=== PATIENT | male | born 1960 | race African-American/Black ===

== ENCOUNTER 2018-11-07 14:52 | Inpatient (IN) | payer MEDICARE, MEDICAID ==
[~2018-11-07] VITALS: Ht 182.9 cm; Wt 73.5 kg
[2018-11-07] MEDS ORDERED: OLANZAPINE 10 MG VIAL IM ONE ×2 (15:15→15:32)
[2018-11-07 15:28] LABS: BASOPHILS # (AUTO) 0.1 K/uL (0.0-8.0); BASOPHILS % (AUTO) 1.1 % (0.0-2.0); EOSINOPHILS # (AUTO) 0.1 K/uL (0.0-0.7); EOSINOPHILS % (AUTO) 1.6 % (0.0-7.0); HEMATOCRIT 37.6 % (36.7-47.1); HEMOGLOBIN 12.2 g/dL (12.5-16.3); LYMPHOCYTES # (AUTO) 1.1 K/uL (20.0-40.0); MEAN CORPUSCULAR HEMOGLOBIN 28.9 uug (23.8-33.4); MEAN CORPUSCULAR HGB CONC 32 g/dL (32.5-36.3); MEAN CORPUSCULAR VOLUME 89.4 fL (73.0-96.2); MONOCYTES # (AUTO) 0.5 K/uL (2.0-10.0); MONOCYTES % (AUTO) 8.2 % (0.0-11.0); NEUTROPHILS % (AUTO) 69.1 % (38.5-71.5); PLATELET COUNT (AUTO) 182 K/uL (152-348); RED BLOOD CELL COUNT(AUTO) 4.21 MIL/uL (4.06-5.63); WHITE BLOOD COUNT (AUTO) 5.7 K/uL (3.6-10.2)
[2018-11-07 15:39] LABS: CARBON DIOXIDE 27 mmol/L (21-32); CHLORIDE 106 mmol/L (98-107); CREATININE 1.6 mg/dL (0.6-1.3); GLUCOSE 132 mg/dL (74-106); POTASSIUM 4.5 mmol/L (3.5-5.1); UREA NITROGEN, BLOOD 27 mg/dL (7-18)
[2018-11-07 15:43] LABS: ALANINE AMINOTRANSFERASE 88 U/L (16-63); ALKALINE PHOSPHATASE 73 U/L (50-136); ASPARTATE AMINOTRANSFERASE 46 U/L (15-37); BILIRUBIN,DIRECT 0.1 mg/dL (0.0-0.2); BILIRUBIN,TOTAL 0.4 mg/dL (0.2-1.0); TOTAL PROTEIN, SERUM 6.2 g/dL (6.4-8.2)
[2018-11-07 15:45] LABS: ACETAMINOPHEN < 2.0 ug/mL (10-30)
[2018-11-07 15:52] LABS: ETHANOL < 3 MG/DL (0-0)
[2018-11-07] MEDS ORDERED: CARV25TA2 PO (16:02)
[2018-11-07] MEDS ORDERED: DIPH25CA83 PO (16:02)
[2018-11-07] MEDS ORDERED: LISI10TA5 PO (16:02)
[2018-11-07] MEDS ORDERED: FAMO20TA8 PO (16:02)
[2018-11-07] MEDS ORDERED: HEPA500013 IJ (16:02)
[2018-11-07] MEDS ORDERED: LORA1TAB PO (16:02)
[2018-11-07] MEDS ORDERED: BENZ1TAB7 PO (16:02)
[2018-11-07] MEDS ORDERED: DEXT38GE12 PO (16:02)
[2018-11-07] MEDS ORDERED: POLY17PO4 PO (16:02)
[2018-11-07] MEDS ORDERED: ACET325T53 PO (16:02)
[2018-11-07] MEDS ORDERED: HALO5TAB12 PO ×2 (16:02)
[2018-11-07] MEDS ORDERED: FURO20TA4 PO (16:02)
[2018-11-07] MEDS ORDERED: GLIP2.5T3 PO (16:02)
--- NOTE | 2018-11-07 16:04 | NUR ---
PT MEDICALLY CLEARED, TRANSFER TO [facility] PENDING ON BED AVAILABILITY, METALLURGIST HELPER AWARE.
--- NOTE | 2018-11-07 17:00 | NUR ---
HOSPITAL DINNER TRAY PROVIDED
--- NOTE | 2018-11-07 19:30 | NUR ---
Received report from Reba EDWARDS, assumed care of pt., pt. resting in bed, security at bedside for 1:1 for pt. safety, bed in low position, wheels locked, all pt. needs met,
--- NOTE | 2018-11-07 19:45 | NUR ---
Jorge hernandez picked up from pharmacy for pt.,
--- NOTE | 2018-11-07 20:11 | NUR ---
Pt. up to use restroom, walks w/ steady gait, blanket given for comfort,
[2018-11-07] MEDS: NICOTINE 14 MG/24HR PATCH TD SCH (20:14)
[2018-11-07] MEDS ORDERED: DEXTROSE 50% 50 ML DISP.SYRIN IV PRN (20:30)
[2018-11-07] MEDS ORDERED: FAMOTIDINE 20 MG TABLET PO PRN (20:30)
[2018-11-07] MEDS ORDERED: ONDANSETRON ODT 4 MG TAB.RAPDIS SL ONE (20:30)
--- NOTE | 2018-11-07 20:30 | NUR ---
Pt. witnessed sticking fingers down throat to forcibly vomit into trash can,
[2018-11-07] MEDS ORDERED: ONDANSETRON ODT 4 MG TAB.RAPDIS ONE (20:35)
--- NOTE | 2018-11-07 21:25 | NUR ---
[place] [facility]
[2018-11-07] MEDS: BLOOD SUGAR DIAGNOSTIC 1 EACH STRIP VI SCH (21:50)
--- NOTE | 2018-11-07 21:51 | NUR ---
Pt. taken off unit via wheelchair by RN and security, all belongings w/ pt., chart copied and taken w/ pt., NAD
[2018-11-07] MEDS ORDERED: MAGNESIUM HYDROXIDE 30 ML LIQUID UDC PO PRN (22:00)
[2018-11-07] MEDS ORDERED: MAG HYDROX/AL HYDROX/SIMETH 30 ML LIQUID UDC PO PRN (22:00)
[2018-11-07 22:35] VITALS: BP 119/87
--- NOTE | 2018-11-07 23:00 | NUR ---
received to care, from the emergency room, on a 14 day hold, a transfer from [facility]. according to the chart, he was previously homeless. he apparently was acting bizarre at a local business, yelling, with his pants down. the police were called, and he was taken to [facility], initially. upon arrival here, he was pleasant and cooperative. denied SI/HI, and agreed to contract for safety, while in the hospital. he appeared disheveled, with odorous clothing, but agreed to take a shower, and went to bed. as of 2300, he appears to be awake, but calm. no distress noted.
[2018-11-08] MEDS: CLONAZEPAM 0.5 MG TABLET PO PRN ×2 (00:37→20:24)
--- NOTE | 2018-11-08 00:37 | NUR ---
is now awake and restless, pacing the hallway intermittently, wandering into peers rooms. was redirected back to his bed, but remains restless, thrashing about and talking to self; PRN kate was given. will continue to monitor closely.
--- NOTE | 2018-11-08 01:33 | NUR ---
appears to be asleep. no distress noted.
[2018-11-08] MEDS: BLOOD SUGAR DIAGNOSTIC 1 EACH STRIP VI SCH ×4 (06:39→20:25)
[2018-11-08 07:30] VITALS: BP 141/104
--- NOTE | 2018-11-08 07:30 | NUR ---
RECIEVED PT LYING IN BED AND SO SOUND ASLEEP. AROUSABLE TO CALL. NO APPARENT DISTRESS NOTED.
[2018-11-08 07:39] LABS: BASOPHILS # (AUTO) 0.1 K/uL (0.0-8.0); BASOPHILS % (AUTO) 1.1 % (0.0-2.0); EOSINOPHILS # (AUTO) 0.1 K/uL (0.0-0.7); EOSINOPHILS % (AUTO) 1.7 % (0.0-7.0); HEMATOCRIT 39.1 % (36.7-47.1); HEMOGLOBIN 12.6 g/dL (12.5-16.3); LYMPHOCYTES # (AUTO) 1.5 K/uL (20.0-40.0); LYMPHOCYTES % (AUTO) 24.8 % (20.5-51.5); MEAN CORPUSCULAR HEMOGLOBIN 28.7 uug (23.8-33.4); MEAN CORPUSCULAR HGB CONC 32 g/dL (32.5-36.3); MEAN CORPUSCULAR VOLUME 89.3 fL (73.0-96.2); MONOCYTES # (AUTO) 0.5 K/uL (2.0-10.0); MONOCYTES % (AUTO) 8.8 % (0.0-11.0); NEUTROPHILS # (AUTO) 3.7 K/uL (1.8-8.9); NEUTROPHILS % (AUTO) 63.6 % (38.5-71.5); PLATELET COUNT (AUTO) 200 K/uL (152-348); RED BLOOD CELL COUNT(AUTO) 4.38 MIL/uL (4.06-5.63); WHITE BLOOD COUNT (AUTO) 5.9 K/uL (3.6-10.2)
[2018-11-08 07:49] LABS: CREATININE 1.8 mg/dL (0.6-1.3); MAGNESIUM 1.8 mg/dL (1.8-2.4); PHOSPHOROUS 3.3 mg/dL (2.5-4.9); POTASSIUM 4.1 mmol/L (3.5-5.1)
[2018-11-08 08:10] LABS: THYROID STIMULATING HORMONE 2.374 mIU/mL (0.358-3.740)
[2018-11-08] MEDS: NICOTINE 14 MG/24HR PATCH TD SCH (08:50)
[2018-11-08] MEDS: BENZTROPINE MESYLATE 1 MG TABLET PO SCH ×2 (08:50→17:14)
[2018-11-08] MEDS: CARVEDILOL 25 MG TABLET PO SCH ×2 (08:51→17:21)
--- NOTE | 2018-11-08 09:30 | NUR ---
PT REFUSED TO EAT BREAKFAST AT THIS TIME BUT PT TOOK HIS MEDICATIONS.
[2018-11-08 16:00] VITALS: BP 139/77
--- NOTE | 2018-11-08 17:00 | NUR ---
PT HAS BEEN SLEEPING MOST OF THE DAY. NO HALLUCINATIONS NOTED, NO EVENTFUL EPISODE TODAY. VSS STABLE.
[2018-11-08] MEDS: HALOPERIDOL 5 MG TABLET PO SCH (17:14)
[2018-11-08] MEDS: INSULIN REGULAR, HUMAN 300 UNIT/3 ML VIAL SQ PRN (17:18)
[2018-11-08 20:21] VITALS: BP 123/76
[2018-11-08] MEDS: ACETAMINOPHEN 325 MG TABLET PO PRN (20:24)
--- NOTE | 2018-11-08 22:00 | NUR ---
received to care, lying in bed, pleasant upon approach. compliant with medications fluids, snacks, and staff requests. PRN gadielonopin was given at 2024. as of 2199, he appears to be asleep. no distress noted. will continue to monitor closely.
[2018-11-09] MEDS: BLOOD SUGAR DIAGNOSTIC 1 EACH STRIP VI SCH ×4 (07:01→20:48)
[2018-11-09 07:21] LABS: BASOPHILS # (AUTO) 0.1 K/uL (0.0-8.0); BASOPHILS % (AUTO) 0.8 % (0.0-2.0); EOSINOPHILS # (AUTO) 0.1 K/uL (0.0-0.7); EOSINOPHILS % (AUTO) 1.6 % (0.0-7.0); HEMATOCRIT 37.8 % (36.7-47.1); LYMPHOCYTES # (AUTO) 1.2 K/uL (20.0-40.0); LYMPHOCYTES % (AUTO) 18.6 % (20.5-51.5); MEAN CORPUSCULAR HEMOGLOBIN 28.4 uug (23.8-33.4); MEAN CORPUSCULAR HGB CONC 32 g/dL (32.5-36.3); MEAN CORPUSCULAR VOLUME 89.4 fL (73.0-96.2); MONOCYTES # (AUTO) 0.6 K/uL (2.0-10.0); MONOCYTES % (AUTO) 8.9 % (0.0-11.0); NEUTROPHILS # (AUTO) 4.6 K/uL (1.8-8.9); NEUTROPHILS % (AUTO) 70.1 % (38.5-71.5); PLATELET COUNT (AUTO) 182 K/uL (152-348); RED BLOOD CELL COUNT(AUTO) 4.23 MIL/uL (4.06-5.63); WHITE BLOOD COUNT (AUTO) 6.6 K/uL (3.6-10.2)
[2018-11-09 07:30] VITALS: BP 113/80
[2018-11-09 07:36] LABS: CREATININE 1.7 mg/dL (0.6-1.3); MAGNESIUM 1.8 mg/dL (1.8-2.4); PHOSPHOROUS 3.7 mg/dL (2.5-4.9); POTASSIUM 3.8 mmol/L (3.5-5.1)
[2018-11-09] MEDS: BENZTROPINE MESYLATE 1 MG TABLET PO SCH ×2 (09:02→16:54)
[2018-11-09] MEDS: HALOPERIDOL 5 MG TABLET PO SCH ×3 (09:02→16:54)
[2018-11-09] MEDS: NICOTINE 14 MG/24HR PATCH TD SCH (09:03)
[2018-11-09] MEDS: CARVEDILOL 25 MG TABLET PO SCH ×2 (09:03→17:36)
[2018-11-09 11:45] LABS: BILIRUBIN,DIRECT 0.1 mg/dL (0.0-0.2); BILIRUBIN,TOTAL 0.3 mg/dL (0.2-1.0); TOTAL PROTEIN, SERUM 6.2 g/dL (6.4-8.2)
[2018-11-09] MEDS: INSULIN REGULAR, HUMAN 300 UNIT/3 ML VIAL SQ PRN ×3 (12:15→21:45)
--- NOTE | 2018-11-09 12:57 | NUR ---
Gps/Chemistry Technician-Patient anxious, figity, responding to internal stimuli, kept anking for food,crackers, and drinks. Reminded patient of his diabetes. Adequate meals intake, adequate fluids. Compliant with routine meds. Goes to activity room watched TV.
[2018-11-09 16:00] VITALS: BP 120/76
--- NOTE | 2018-11-09 16:57 | NUR ---
Preliminary Discharge Plan/Discharge needs: Pt is currently homeless. SW was unable to ascertain a discharge plan with pt due to pts cognitive impairment and labile mood. core worker will continue to work on a safe and proper discharge plan for pt with pt and MD.
[2018-11-09 19:49] VITALS: BP 134/67
--- NOTE | 2018-11-09 20:00 | NUR ---
Received patient in bed, sleeping. Patient can be aroused to take medications and have blood sugar checked. Patient is oriented x2. All safety and fall precaution measures are in place. Personal items are within reach at all times. VS are wnl and patient is stable. Will continue to monitor.
[2018-11-09] MEDS: CLONAZEPAM 0.5 MG TABLET PO PRN (21:42)
--- NOTE | 2018-11-09 22:40 | NUR ---
Patient states he is unable to sleep. Nurse asked if he would like something to help him sleep. Patient stated yes. Nurse provided patient prescribed sleep medication, as ordered.
[2018-11-09] MEDS: TEMAZEPAM 7.5 MG CAPSULE PO PRN (22:45)
--- NOTE | 2018-11-09 22:54 | NUR ---
Patient is awake and responding to internal stimuli.
--- NOTE | 2018-11-10 | NUR ---
appers to be asleep. no distress noted.
[2018-11-10] MEDS: CLONAZEPAM 0.5 MG TABLET PO PRN ×2 (05:02→14:13)
--- NOTE | 2018-11-10 05:03 | NUR ---
PRN klonopin given for increased agitation, yelling and talking to self.
[2018-11-10] MEDS: BLOOD SUGAR DIAGNOSTIC 1 EACH STRIP VI SCH ×4 (07:00→21:15)
[2018-11-10 08:01] VITALS: BP 134/99
[2018-11-10] MEDS: BENZTROPINE MESYLATE 1 MG TABLET PO SCH ×2 (08:17→16:43)
[2018-11-10] MEDS: CARVEDILOL 25 MG TABLET PO SCH ×2 (08:17→16:43)
[2018-11-10] MEDS: HALOPERIDOL 5 MG TABLET PO SCH ×3 (08:17→16:43)
[2018-11-10] MEDS: NICOTINE 14 MG/24HR PATCH TD SCH (08:21)
[2018-11-10] MEDS: INSULIN REGULAR, HUMAN 300 UNIT/3 ML VIAL SQ PRN ×3 (11:37→21:19)
--- NOTE | 2018-11-10 16:12 | NUR ---
GROUP NOTE: SW prompted pt to attend group discussing the topic of social supports, but pt was sleeping and not easily aroused.
[2018-11-10 16:24] VITALS: BP 130/88
[2018-11-10 19:47] VITALS: BP 139/81
--- NOTE | 2018-11-10 22:00 | NUR ---
Pt received to care in bed, resting comfortably. Pt compliant with ordered POC blood glucose test, with a result of 265 and insulin coverage of 3 units. Requested snacks of ihsan crackers and milk provided. Pt easily redirectable and cooperative with aspects of care to this point. Will continue to monitor. Addendum: 11/11/18 at 0114 by LONI BLAS RN Correction: pt's POC blood glucose was 165 and 3 units of insulin were provided for coverage.
[2018-11-11] MEDS: TEMAZEPAM 7.5 MG CAPSULE PO PRN (00:18)
--- NOTE | 2018-11-11 00:18 | NUR ---
Pt requested medication to help him sleep. Prescribed sleeping medication provided as requested, per prescribed order.
[2018-11-11] MEDS: CLONAZEPAM 0.5 MG TABLET PO PRN ×4 (03:16→22:43)
--- NOTE | 2018-11-11 03:17 | NUR ---
pt is in hallway pacing and anxious; provided pt with prescribed Klonopin, as ordered.
--- NOTE | 2018-11-11 04:17 | NUR ---
pt now sleeping in bed. Klonopin effective.
[2018-11-11] MEDS: BLOOD SUGAR DIAGNOSTIC 1 EACH STRIP VI SCH ×5 (06:06→20:38)
[2018-11-11 06:18] LABS: BASOPHILS % (AUTO) 0.2 % (0.0-2.0); EOSINOPHILS % (AUTO) 1.2 % (0.0-7.0); HEMATOCRIT 36.4 % (36.7-47.1); HEMOGLOBIN 11.7 g/dL (12.5-16.3); LYMPHOCYTES % (AUTO) 24.6 % (20.5-51.5); MEAN CORPUSCULAR HEMOGLOBIN 28.6 uug (23.8-33.4); MEAN CORPUSCULAR HGB CONC 32 g/dL (32.5-36.3); MEAN CORPUSCULAR VOLUME 89.1 fL (73.0-96.2); MONOCYTES % (AUTO) 10.1 % (0.0-11.0); NEUTROPHILS % (AUTO) 63.9 % (38.5-71.5); PLATELET COUNT (AUTO) 195 K/uL (152-348); RED BLOOD CELL COUNT(AUTO) 4.08 MIL/uL (4.06-5.63); WHITE BLOOD COUNT (AUTO) 5.5 K/uL (3.6-10.2)
[2018-11-11 06:19] LABS: EOSINOPHILS # (AUTO) 0.1 K/uL (0.0-0.7); LYMPHOCYTES # (AUTO) 1.4 K/uL (20.0-40.0); MONOCYTES # (AUTO) 0.6 K/uL (2.0-10.0); NEUTROPHILS # (AUTO) 3.5 K/uL (1.8-8.9)
[2018-11-11 06:35] LABS: CREATININE 1.7 mg/dL (0.6-1.3); MAGNESIUM 1.7 mg/dL (1.8-2.4); PHOSPHOROUS 3.7 mg/dL (2.5-4.9); POTASSIUM 4.2 mmol/L (3.5-5.1)
--- NOTE | 2018-11-11 07:20 | NUR ---
pt slept intermittently through night, pacing halls at times, and requesting 'snacks.' Pt not happy when refused food after midnight but was redirectable. pt was compliant with medications and poc glucose testing.
[2018-11-11 08:31] VITALS: BP 142/90
[2018-11-11] MEDS: NICOTINE 14 MG/24HR PATCH TD SCH (08:38)
[2018-11-11] MEDS: HALOPERIDOL 5 MG TABLET PO SCH ×3 (08:39→16:21)
[2018-11-11] MEDS: CARVEDILOL 25 MG TABLET PO SCH ×2 (08:39→17:37)
[2018-11-11] MEDS: BENZTROPINE MESYLATE 1 MG TABLET PO SCH ×2 (08:39→16:22)
[2018-11-11] MEDS: INSULIN REGULAR, HUMAN 300 UNIT/3 ML VIAL SQ PRN ×2 (08:40→20:41)
[2018-11-11] MEDS ORDERED: MAGNESIUM OXIDE 400 MG TABLET PO ONE (09:00)
[2018-11-11] MEDS: diphenhydrAMINE 25 MG CAP PO PRN ×2 (11:34→22:43)
[2018-11-11 16:13] VITALS: BP 165/87
[2018-11-11 19:39] VITALS: BP 125/59
[2018-11-12] MEDS: CLONAZEPAM 0.5 MG TABLET PO PRN ×2 (05:31→11:33)
[2018-11-12] MEDS: BLOOD SUGAR DIAGNOSTIC 1 EACH STRIP VI SCH ×4 (06:09→20:37)
[2018-11-12 07:30] VITALS: BP 126/70
[2018-11-12] MEDS: NICOTINE 14 MG/24HR PATCH TD SCH (08:21)
[2018-11-12] MEDS: HALOPERIDOL 5 MG TABLET PO SCH ×3 (08:21→16:39)
[2018-11-12] MEDS: CARVEDILOL 25 MG TABLET PO SCH ×2 (08:22→17:23)
[2018-11-12] MEDS: ACETAMINOPHEN 325 MG TABLET PO PRN ×2 (08:22→16:39)
[2018-11-12] MEDS: diphenhydrAMINE 25 MG CAP PO PRN ×2 (08:22→21:13)
[2018-11-12] MEDS: BENZTROPINE MESYLATE 1 MG TABLET PO SCH ×2 (08:23→16:39)
[2018-11-12] MEDS: INSULIN REGULAR, HUMAN 300 UNIT/3 ML VIAL SQ PRN ×3 (08:25→16:54)
--- NOTE | 2018-11-12 14:26 | NUR ---
GPS: Nursing Notes: Thought Disorder: Patient is awake and responding to his name, disorganized, anxious and labile affect, verbal abusive toward staff this am, constantly asking for food, but self inducing vomiting, covering psychiatrist informed of vomiting episode, patient gets easily irritable when redirected, disoriented, impaired judgment, using the N word toward staff, unkempt appearance, patient stated, "I will not do it again.." when psychiatrist talked to him, episodes of pacing on the hallway, getting into other patient's room and grabbing food, redirected and reoriented during shift, but becomes loud and angry at times, unable to formulate a viable plan for self care, resistant with nursing care, not compliant with his diabetic diet, continue with treatment plan.
[2018-11-12 16:00] VITALS: BP 123/84
[2018-11-12 20:05] VITALS: BP 132/86
[2018-11-12] MEDS: TEMAZEPAM 7.5 MG CAPSULE PO PRN (21:13)
[2018-11-13] MEDS: CLONAZEPAM 0.5 MG TABLET PO PRN ×3 (01:22→22:08)
[2018-11-13] MEDS: BLOOD SUGAR DIAGNOSTIC 1 EACH STRIP VI SCH ×4 (06:21→20:46)
[2018-11-13 07:30] VITALS: BP 120/69
[2018-11-13] MEDS: CARVEDILOL 25 MG TABLET PO SCH ×2 (08:22→18:03)
[2018-11-13] MEDS: BENZTROPINE MESYLATE 1 MG TABLET PO SCH ×2 (08:22→16:33)
[2018-11-13] MEDS: HALOPERIDOL 5 MG TABLET PO SCH ×3 (08:22→16:33)
[2018-11-13] MEDS: ACETAMINOPHEN 325 MG TABLET PO PRN (08:22)
[2018-11-13] MEDS: NICOTINE 14 MG/24HR PATCH TD SCH (08:23)
[2018-11-13] MEDS: diphenhydrAMINE 25 MG CAP PO PRN ×2 (11:42→20:27)
[2018-11-13] MEDS: INSULIN REGULAR, HUMAN 300 UNIT/3 ML VIAL SQ PRN ×3 (11:43→20:49)
[2018-11-13 15:12] VITALS: BP 121/80
[2018-11-13 20:13] VITALS: BP 120/68
[2018-11-14] MEDS: BLOOD SUGAR DIAGNOSTIC 1 EACH STRIP VI SCH ×2 (06:25→11:43)
--- NOTE | 2018-11-14 06:36 | NUR ---
PT SLEPT ON & OFF FOR 3.45 HRS.HIS ROOM WAS SO MESSY WITH FILTHY BED SHEETS,BLANKET,PILLOW AND JUICE STAINED NOTED ON THE FLOOR.PT TOOK A SHOWER THIS MORNING THEN WENT BACK TO THE CLEAN BED.
[2018-11-14 07:30] VITALS: BP 140/86
[2018-11-14] MEDS: CLONAZEPAM 0.5 MG TABLET PO PRN (08:21)
[2018-11-14] MEDS: BENZTROPINE MESYLATE 1 MG TABLET PO SCH (08:21)
[2018-11-14] MEDS: HALOPERIDOL 5 MG TABLET PO SCH ×2 (08:21→12:05)
[2018-11-14 08:22] VITALS: BP 140/86
[2018-11-14] MEDS: NICOTINE 14 MG/24HR PATCH TD SCH (08:22)
[2018-11-14] MEDS: CARVEDILOL 25 MG TABLET PO SCH (08:22)
--- NOTE | 2018-11-14 10:14 | NUR ---
Discharge Note: Patient will be discharged to [facility] [[address] [place] [address]; ]. Molding Technician spoke with Omid, Network Contract Manager, who stated facility can accept patient today. Please arrange ambulance for this patient by 12:00pm. Patient is AxOx1-2, denies suicidal ideation, is able to plan for self-care, and is agreeable with discharge plan. There is no next of kin identified in patients records to notify of discharge plan. Patient will follow up with Dr. Patel (Layboy Operator) and Dr. Khan (Psychiatrist) at [facility]. Patient was given outpatient mental health resources to [facility] , Jasmine Michaels , and the National Suicide Prevention Lifeline . Patient was provided with the homeless long term packet, which includes a list of emergency shelters, housing resources, drop in centers, and showers/hot meals centers. This also included the Homeless Information Hotline (968)-667-5845 or 211, [place] for [employer] (336)- 149-9944, and the [facility] ([phone]. Patient was given outpatient mental health resources to [facility] , Jasmine Michaels , and the National Suicide Prevention Lifeline . Patient has signed the Homeless Waiver Form and a copy was placed in his chart.
[2018-11-14] MEDS: INSULIN REGULAR, HUMAN 300 UNIT/3 ML VIAL SQ PRN (11:50)
--- NOTE | 2018-11-14 14:15 | NUR ---
GPS: Nursing Notes: Discharge Notes: Patient is awake and responding to his name, cooperative with nursing care, compliant with her medications, following staff directions, denies any SI/HI, denies any AH/VH, denies any pain or discomfort, denies any SOB, discharge to [facility] at [address] [place] [id number] , report given to facility's nurse, Jada, RN vat house supervisor, took all his belongings with him. Patient will follow up with Dr. Patel (Garment Sewer Hand) and Dr. Khan (Psychiatrist) at [facility]. Patient was given outpatient mental health resources to [facility] Crisis [facility] , [facility]asmine Michaels , and the National Suicide Prevention Lifeline . Patient was provided with the homeless penitentiary packet, which includes a list of emergency shelters, housing resources, drop in centers, and showers/hot meals centers. This also included the Homeless Information Hotline (176)-899-2515 or 211, [place] for [employer] , and the [facility] ([phone])-[phone]. Patient was given outpatient mental health resources to [facility] Crisis [facility] , [facility]asmine Michaels , and the National Suicide Prevention Lifeline . Patient has signed the Homeless Waiver Form and a copy was placed in his chart.
== END 2018-11-14 14:15 | DRG 885 ==
LOC: ER 14:54 → GPS 21:28
PROVIDERS: ADMIT Psychiatry & Neurology Psychiatry; ATTEND Student in an Organized Health Care Education/Training Program
DX: F20.0 Paranoid schizophrenia (principal); N17.9 Acute kidney failure, unspecified; N18.9 Chronic kidney disease, unspecified; I13.0 Hypertensive heart and chronic kidney disease with heart failure and stage 1 through stage 4 chronic kidney disease, or unspecified chronic kidney disease; E44.1 Mild protein-calorie malnutrition; F17.210 Nicotine dependence, cigarettes, uncomplicated; Z59.0 Homelessness; T50.2X5A Adverse effect of carbonic-anhydrase inhibitors, benzothiadiazides and other diuretics, initial encounter; Y92.89 Other specified places as the place of occurrence of the external cause; E11.22 Type 2 diabetes mellitus with diabetic chronic kidney disease; I50.9 Heart failure, unspecified; Z79.84 Long term (current) use of oral hypoglycemic drugs; D63.8 Anemia in other chronic diseases classified elsewhere; Z68.22 Body mass index [BMI] 22.0-22.9, adult; E83.42 Hypomagnesemia; R74.0 Nonspecific elevation of levels of transaminase and lactic acid dehydrogenase [LDH]
CPT/HCPCS: 36415; 83735; 84100; 84443; 85025; A4663; G0480; G0480-TC; J1815; J2358; Q0162; Q0163

== ENCOUNTER 2024-02-07 20:55 | Inpatient (IN) | payer MEDICARE, OTHER ==
[~2024-02-07] VITALS: Ht 188 cm; Wt 76.2 kg
[~2024-02-07 20:55] MED LIST: BENZ1TAB7 PO; CARV25TA2 PO; DEXT38GE12 PO; DIPH25CA83 PO; FAMO20TA8 PO; FURO20TA4 PO; GLIP2.5T3 PO; HEPA500013 IJ; LISI10TA29 PO; POLY17PO4 PO
[2024-02-07] MEDS ORDERED: HYDR-4077 PO (21:54)
[2024-02-07] MEDS ORDERED: ATOR10TA PO (21:55)
[2024-02-07] MEDS ORDERED: LOSA50TA39 PO (21:56)
[2024-02-07] MEDS ORDERED: METF-440 PO (21:57)
[2024-02-07] MEDS ORDERED: SERT100T PO (21:57)
[2024-02-07] MEDS ORDERED: AMLO10TA59 PO (21:59)
[2024-02-07] MEDS ORDERED: HYDR50TA62 PO (22:04)
[2024-02-07 22:30] VITALS: BP 178/88; TEMP 98.1; O2SAT 99
[2024-02-07] MEDS: AMLODIPINE 10 MG TABLET PO SCH (22:30)
[2024-02-07] MEDS ORDERED: Medication Not On Formulary EA (Hydroxyzine Hcl 50 MG) PO PRN (22:30)
[2024-02-07] MEDS ORDERED: MIRALAX 17 GM POWD.PACK PO PRN (22:30)
[2024-02-07] MEDS: CARVEDILOL 25 MG TABLET PO SCH (22:30)
[2024-02-07] MEDS ORDERED: GLUCOSE ORAL GEL 15 GM TUBE PO PRN (22:30)
[2024-02-07] MEDS ORDERED: ZOLPIDEM 5 MG TABLET PO PRN (22:45)
[2024-02-07] MEDS: BLOOD SUGAR DIAGNOSTIC 1 EACH STRIP VI ONE (22:45)
[2024-02-07] MEDS ORDERED: LORAZEPAM 1 MG TABLET PO PRN (22:45)
[2024-02-07] MEDS ORDERED: MAGNESIUM HYDROXIDE 30 ML LIQUID UDC PO PRN (22:45)
[2024-02-07] MEDS: ONDANSETRON ODT 4 MG TAB.RAPDIS SL ONE (22:45)
[2024-02-07] MEDS: hydrALAZINE HCL 25 MG TABLET PO ONE (23:49)
[2024-02-08 00:30] VITALS: BP 142/82
[2024-02-08] MEDS: LORAZEPAM 1 MG TABLET PO PRN ×2 (00:41→20:46)
[2024-02-08 00:45] VITALS: BP 142/82
[2024-02-08 07:42] LABS: ALBUMIN 3.4 g/dL (3.4-5.0); BILIRUBIN,TOTAL 0.3 mg/dL (0.2-1.0); CALCIUM 9.1 mg/dL (8.5-10.1); CREATININE 1.3 mg/dL (0.6-1.3); POTASSIUM 3.7 mmol/L (3.5-5.1)
[2024-02-08 08:23] VITALS: BP 126/78; TEMP 98; O2SAT 98
[2024-02-08] MEDS ORDERED: BENZTROPINE MESYLATE 1 MG TABLET PO SCH (09:00)
[2024-02-08] MEDS: glipiZIDE XL 2.5 MG TABCR PO SCH (09:13)
[2024-02-08] MEDS: FUROSEMIDE 20 MG TABLET PO SCH (09:13)
[2024-02-08] MEDS: METFORMIN HCL 500 MG TABLET PO SCH (09:14)
[2024-02-08] MEDS: LOSARTAN POTASSIUM 50 MG TABLET PO SCH (09:14)
[2024-02-08] MEDS: hydrALAZINE HCL 50 MG TABLET PO SCH (09:15)
[2024-02-08] MEDS: NICOTINE 14 MG/24HR PATCH TD SCH (09:15)
[2024-02-08 15:12] VITALS: BP 150/75; TEMP 98; O2SAT 96
[2024-02-08] MEDS: risperiDONE 1 MG TABLET PO SCH (16:17)
[2024-02-08] MEDS: BENZTROPINE MESYLATE 1 MG TABLET PO SCH (16:17)
[2024-02-08] MEDS: ATORVASTATIN 10 MG TABLET PO SCH (17:17)
[2024-02-08 20:00] VITALS: BP 174/89; TEMP 99.4; O2SAT 98
[2024-02-09 07:48] VITALS: BP 128/64; TEMP 98; O2SAT 96
[2024-02-09 15:31] VITALS: BP 138/70; TEMP 98; O2SAT 98
[2024-02-09 19:52] VITALS: BP 125/69; TEMP 98; O2SAT 99
[2024-02-09] MEDS: FAMOTIDINE 20 MG TABLET PO PRN (20:03)
[2024-02-10 11:45] VITALS: BP 142/80; TEMP 97
[2024-02-10 20:00] VITALS: BP 119/62; TEMP 98.1; O2SAT 96
[2024-02-11 08:21] VITALS: BP 113/56; TEMP 98.2; O2SAT 99
[2024-02-11 17:02] VITALS: BP 99/59; TEMP 98.1
[2024-02-11 21:08] VITALS: BP 101/50; TEMP 97.9; O2SAT 100
[2024-02-11] MEDS: ZOLPIDEM 5 MG TABLET PO PRN (23:09)
[2024-02-12] MEDS: diphenhydrAMINE 25 MG CAP PO PRN (01:54)
[2024-02-12] MEDS: ACETAMINOPHEN 325 MG TABLET PO PRN (05:21)
[2024-02-12 09:17] VITALS: BP 120/74; TEMP 98.4; O2SAT 98
[2024-02-12 16:23] VITALS: BP 147/78; TEMP 98.3; O2SAT 98
[2024-02-12 20:18] VITALS: BP 110/58; TEMP 98; O2SAT 100
[2024-02-13 08:27] VITALS: BP 129/61; TEMP 98.3; O2SAT 98
[2024-02-13] MEDS: risperiDONE 1 MG TABLET PO SCH (08:41)
[2024-02-13 16:48] VITALS: BP 125/69; TEMP 98.2; O2SAT 98
[2024-02-13 20:11] VITALS: BP 126/64; TEMP 98.1; O2SAT 98
[2024-02-13] MEDS: risperiDONE 2 MG TABLET PO SCH (20:48)
[2024-02-13] MEDS: MAG HYDROX/AL HYDROX/SIMETH 30 ML LIQUID UDC PO PRN (23:01)
[2024-02-13] MEDS: TEMAZEPAM 7.5 MG CAPSULE PO PRN (23:02)
[2024-02-14 07:44] VITALS: BP 139/75; TEMP 98; O2SAT 99
[2024-02-14 15:41] VITALS: BP 128/65; TEMP 98; O2SAT 98
[2024-02-14 20:01] VITALS: BP 136/66; TEMP 97.9; O2SAT 98
[2024-02-15 07:56] VITALS: BP 111/65; TEMP 98; O2SAT 100
[2024-02-15 16:21] VITALS: BP 116/69; TEMP 98; O2SAT 98
[2024-02-15 19:53] VITALS: BP 112/56; TEMP 98.1; O2SAT 99
[2024-02-16 08:53] VITALS: BP 100/62; TEMP 98.2; O2SAT 99
[2024-02-16] MEDS: risperiDONE 1 MG TABLET PO SCH (09:52)
[2024-02-16 15:17] VITALS: BP 147/75; TEMP 98; O2SAT 99
[2024-02-16 20:00] VITALS: BP 137/71; TEMP 99.1; O2SAT 98
[2024-02-17 08:00] VITALS: BP 128/66; TEMP 98; O2SAT 91
[2024-02-17 16:00] VITALS: BP 92/55; TEMP 98.1; O2SAT 98
[2024-02-17 20:17] VITALS: BP 120/72; TEMP 97.6; O2SAT 98
[2024-02-18 09:03] VITALS: BP 105/82; TEMP 98.3; O2SAT 98
== END 2024-02-18 11:45 | DRG 885 ==
LOC: ER 20:56 → GPS 21:45
PROVIDERS: ADMIT Psychiatry & Neurology Psychiatry; ATTEND Student in an Organized Health Care Education/Training Program
DX: F20.0 Paranoid schizophrenia (principal); F03.918 Unspecified dementia, unspecified severity, with other behavioral disturbance; F03.93 Unspecified dementia, unspecified severity, with mood disturbance; R79.89 Other specified abnormal findings of blood chemistry; D69.6 Thrombocytopenia, unspecified; E78.5 Hyperlipidemia, unspecified; I10 Essential (primary) hypertension; Z71.6 Tobacco abuse counseling; F17.210 Nicotine dependence, cigarettes, uncomplicated; E11.9 Type 2 diabetes mellitus without complications; Z91.199 Patient's noncompliance with other medical treatment and regimen due to unspecified reason; Z79.899 Other long term (current) drug therapy; Z79.84 Long term (current) use of oral hypoglycemic drugs
CPT/HCPCS: 36415; 84443; Q0163